=== PATIENT | male | born 1995 | race African-American/Black ===

== ENCOUNTER 2018-03-10 16:57 | Emergency (ER) | payer SELFPAY ==
[~2018-03-10] VITALS: Ht 177.8 cm; Wt 59.0 kg
[2018-03-10] MEDS ORDERED: MORPHINE SULFATE 4 MG/ML CPJ (NOT FOR IM USE) IV STA (17:24)
[2018-03-10] MEDS ORDERED: ONDANSETRON HCL 4MG/2ML INJ IV STA (17:24)
[2018-03-10] MEDS ORDERED: SODIUM CHLORIDE 0.9% 1,000 ML IV ONE (17:24)
[2018-03-10] MEDS ORDERED: FAMOTIDINE 20MG/2ML VIAL IV ONE (17:45)
[2018-03-10 18:25] LABS: HEMATOCRIT. 42.1 % (42.0-52.0); HEMOGLOBIN. 13.9 g/dL (14.0-18.0); MEAN CORPUSCULAR HEMOGLOBIN 28.5 pg (28.0-32.0); MEAN CORPUSCULAR VOLUME 86.1 fL (80.0-94.0); MEAN PLATELET VOLUME 9.5 fl (7.4-10.4); PLATELET 250 x1000/uL (130-400); RED BLOOD CELL COUNT 4.89 mill/uL (4.7-6.1); RED CELL DISTRIBUTION WIDTH 15.8 % (11.6-14.6)
[2018-03-10 18:32] LABS: CHLORIDE 99 mEq/L (98-107)
[2018-03-10 20:34] LABS: CLARITY URINE CLEAR (CLEAR); COLOR URINE DARK YELLOW (YELLOW); KETONES URINE 3+ (NEGATIVE); LEUKOCYTE ESTERASE URINE TRACE (NEGATIVE); NITRITE URINE NEGATIVE (NEGATIVE); OCCULT BLOOD URINE NEGATIVE (NEGATIVE); PH URINE 6.5 (4.5-8.0); PROTEIN URINE 1+ (NEGATIVE); SPECIFIC GRAVITY URINE 1.035 (1.005-1.030)
[2018-03-10 20:41] LABS: PLATELET ESTIMATE NORMAL
[2018-03-10 22:02] VITALS: BP 120/75
== END 2018-03-10 22:04 | disposition home or self-care (01) ==
LOC: ER 16:57
DX: R10.84 Generalized abdominal pain (principal); R11.2 Nausea with vomiting, unspecified; R19.7 Diarrhea, unspecified; K50.90 Crohn's disease, unspecified, without complications
CPT/HCPCS: 36415; 80053; 81003; 83605; 83690; 85025; 96361; 96374; 96375; 99284; J2270; J2405; J3490; J7030; Z7610

== ENCOUNTER 2018-05-19 13:06 | Inpatient (IN) | payer OTHER ==
[~2018-05-19] VITALS: Ht 180.3 cm; Wt 54.4 kg
[2018-05-19] MEDS ORDERED: ONDANSETRON HCL 4MG/2ML INJ IV STA (21:21)
[2018-05-19] MEDS ORDERED: SODIUM CHLORIDE 0.9% 1,000 ML IV ONE (21:21)
[2018-05-19 21:48] LABS: BASOPHILS % 0.2 % (0.0-2.0); EOSINOPHILS % 0.2 % (0.0-5.0); HEMOGLOBIN. 16.2 g/dL (14.0-18.0); LYMPHOCYTES % 7.2 % (20.0-50.0); MEAN CORPUSCULAR HEMOGLOBIN 29.6 pg (28.0-32.0); MEAN CORPUSCULAR VOLUME 87.4 fL (80.0-94.0); MEAN PLATELET VOLUME 9.8 fl (7.4-10.4); MONOCYTES % 12.7 % (2.0-8.0); NEUTROPHILS % 79.7 % (40.0-76.0); PLATELET 230 x1000/uL (130-400); RED BLOOD CELL COUNT 5.49 mill/uL (4.7-6.1); RED CELL DISTRIBUTION WIDTH 16.1 % (11.6-14.6)
[2018-05-19 21:53] LABS: CHLORIDE 95 mEq/L (98-107)
[2018-05-19 22:52] LABS: CLARITY URINE CLEAR (CLEAR); COLOR URINE DARK YELLOW (YELLOW); KETONES URINE 1+ (NEGATIVE); LEUKOCYTE ESTERASE URINE NEGATIVE (NEGATIVE); NITRITE URINE NEGATIVE (NEGATIVE); OCCULT BLOOD URINE NEGATIVE (NEGATIVE); PROTEIN URINE 2+ (NEGATIVE); SPECIFIC GRAVITY URINE 1.039 (1.005-1.030); UROBILINOGEN URINE 0.2 E.U./dL (0.2-1.0)
[2018-05-19] MEDS ORDERED: IOHEXOL-300 100 ML BOTTLE ONE (23:16)
[2018-05-20] MEDS ORDERED: METRONIDAZOLE 500 MG PREMIX 100 ML IV ONE
[2018-05-20] MEDS ORDERED: CEFTRIAXONE 1 G PREMIX 50 ML IV ONE
[2018-05-20] MEDS ORDERED: SODIUM CHLORIDE 0.9% 1,000 ML IV NR (00:01)
[2018-05-20] MEDS ORDERED: DIPHENHYDRAMINE 50MG/ML VIAL IV PRN (01:15)
[2018-05-20] MEDS ORDERED: ACETAMINOPHEN 325MG TABLET PO PRN (01:15)
[2018-05-20] MEDS ORDERED: CLONIDINE 0.1MG TABLET PO PRN (01:15)
[2018-05-20] MEDS ORDERED: MAGNESIUM/ALUMINUM HYDROXIDE/SIMETHICONE 30ML UDC PO PRN (01:15)
[2018-05-20] MEDS ORDERED: DOCUSATE SODIUM 100MG CAPSULE PO PRN (01:15)
[2018-05-20] MEDS ORDERED: NA PHOS,M-B/NA PHOS,DI-BA ENEMA 118ML PR PRN (01:15)
[2018-05-20] MEDS ORDERED: LORAZEPAM 2MG/ML CPJ IV PRN (01:15)
[2018-05-20] MEDS ORDERED: ONDANSETRON HCL 4MG/2ML INJ IV PRN (01:15)
[2018-05-20] MEDS ORDERED: IPRATROPIUM/ALBUTEROL 0.5-3(2.5)MG/3ML NEB INH PRN (01:15)
[2018-05-20] MEDS ORDERED: HYDROCODONE/ACETAMINOPHEN 10/325MG TABLET PO PRN (01:15)
[2018-05-20] MEDS ORDERED: MORPHINE SULFATE 4 MG/ML CPJ (NOT FOR IM USE) IV PRN (01:15)
[2018-05-20] MEDS ORDERED: GUAIFENESIN 200MG/10ML SUGAR FREE UDC PO PRN (01:15)
[2018-05-20 03:49] LABS: CHLORIDE 102 mEq/L (98-107)
[2018-05-20 06:38] VITALS: BP 97/63
[2018-05-20] MEDS ORDERED: LORAZEPAM 0.5MG TABLET PO PRN (06:45)
[2018-05-20 08:00] VITALS: BP 114/76
[2018-05-20] MEDS: METHYLPREDNISOLONE SOD SUCC 125 MG/2 ML VIAL IV SCH ×2 (11:01→16:48)
[2018-05-20 12:00] VITALS: BP 119/74
[2018-05-20] MEDS: ENOXAPARIN 40MG/0.4ML SYR SUBCUT SCH (12:10)
[2018-05-20] MEDS: SODIUM CHLORIDE 0.45% 1,000 ML IV SCH (12:10)
[2018-05-20] MEDS: METRONIDAZOLE 500 MG PREMIX 100 ML IV SCH ×2 (12:11→16:49)
[2018-05-20] MEDS: LEVOFLOXACIN 500MG PREMIX 100 ML IV SCH (13:19)
[2018-05-20 16:00] VITALS: BP 116/80
[2018-05-20] MEDS: MESALAMINE 400 MG CAPSULE.DR PO SCH (18:02)
[2018-05-20 20:00] VITALS: BP 111/73
[2018-05-21] VITALS: BP 111/68
[2018-05-21] MEDS: METHYLPREDNISOLONE SOD SUCC 125 MG/2 ML VIAL IV SCH ×3 (00:10→12:00)
[2018-05-21] MEDS: METRONIDAZOLE 500 MG PREMIX 100 ML IV SCH ×2 (00:11→08:55)
[2018-05-21] MEDS: SODIUM CHLORIDE 0.45% 1,000 ML IV SCH (03:51)
[2018-05-21 04:00] VITALS: BP 120/73
[2018-05-21 06:22] LABS: BASOPHILS % 0.4 % (0.0-2.0); HEMATOCRIT. 43.1 % (42.0-52.0); HEMOGLOBIN. 14.3 g/dL (14.0-18.0); LYMPHOCYTES % 9.3 % (20.0-50.0); MEAN CORPUSCULAR HEMOGLOBIN 29.2 pg (28.0-32.0); MEAN CORPUSCULAR VOLUME 88.3 fL (80.0-94.0); MEAN PLATELET VOLUME 10.5 fl (7.4-10.4); MONOCYTES % 2.8 % (2.0-8.0); NEUTROPHILS % 87.5 % (40.0-76.0); PLATELET 209 x1000/uL (130-400); RED BLOOD CELL COUNT 4.88 mill/uL (4.7-6.1); RED CELL DISTRIBUTION WIDTH 15.7 % (11.6-14.6)
[2018-05-21 06:50] LABS: CHLORIDE 101 mEq/L (98-107)
[2018-05-21 07:00] LABS: LDL CHOLESTEROL 52 mg/dL (5-100)
[2018-05-21 07:01] LABS: HDL CHOLESTEROL 53 mg/dL (40-59)
[2018-05-21 08:00] VITALS: BP 124/79
[2018-05-21] MEDS: MESALAMINE 400 MG CAPSULE.DR PO SCH ×2 (08:56→12:18)
[2018-05-21] MEDS: ENOXAPARIN 40MG/0.4ML SYR SUBCUT SCH (08:57)
[2018-05-21] MEDS: LEVOFLOXACIN 500MG PREMIX 100 ML IV SCH (10:53)
[2018-05-21 12:00] VITALS: BP 125/69
[2018-05-21] MEDS ORDERED: ADAL20KI SQ (13:02)
[2018-05-21 16:00] VITALS: BP 114/68
[2018-05-21 16:11] VITALS: BP 125/69
[2018-05-21] MEDS ORDERED: METRONIDAZOLE 500 MG PREMIX 100 ML IV SCH (17:00)
[2018-05-22] MEDS ORDERED: LEVOFLOXACIN 500MG PREMIX 100 ML IV SCH (09:00)
== END 2018-05-21 17:38 | disposition home or self-care (01) | DRG 386 ==
LOC: ER 13:06 → 6EST 05-20 00:48 → ENRESERV 05-20 05:24
PROVIDERS: ADMIT Internal Medicine; ATTEND Internal Medicine
DX: K50.90 Crohn's disease, unspecified, without complications (principal); N39.0 Urinary tract infection, site not specified; R65.10 Systemic inflammatory response syndrome (SIRS) of non-infectious origin without acute organ dysfunction; E86.0 Dehydration
CPT/HCPCS: 36415; 74177; 80048; 80061; 96365; 96366; 96367; 96375; 99285; J0696; J1650; J1956; J2405; J2930; J3490; J7030; Q9967